=== PATIENT | male | born 2000 | race Hispanic/Latino ===

== ENCOUNTER 2025-06-28 20:59 | Emergency (ER) | payer SELFPAY ==
[2025-06-28] MEDS ORDERED: Ketorolac Tromethamine 30 MG (1 mL) VIAL ONE (22:18)
[2025-06-28] MEDS ORDERED: Acetaminophen 500 MG TAB ONE (22:18)
[2025-06-28 22:48] LABS: Anion Gap 20 mmol/L (10-20); BUN (Urea Nitrogen) 12 mg/dL (8.9-20.6); CK (CPK) 310 U/L (30-200); Calc. Creatinine Clearance 0 mL/min (70-130); Calcium 9.6 mg/dL (7.8-10.44); Carbon Dioxide 21 mmol/L (22-29); Chloride 103 mmol/L (98-107); Glucose 184 mg/dL (70-105); Potassium 3.8 mmol/L (3.5-5.1); Sodium 140 mmol/L (136-145)
== END 2025-06-28 23:17 | disposition home or self-care (01) ==
LOC: BURERS 20:59
DX: M79.604 Pain in right leg (principal); R74.8 Abnormal levels of other serum enzymes; F17.210 Nicotine dependence, cigarettes, uncomplicated; W22.09XA Striking against other stationary object, initial encounter; Y92.69 Other specified industrial and construction area as the place of occurrence of the external cause; Z55.6 Problems related to health literacy
CPT/HCPCS: 36415; 80048; 82550; 96372; 99283; J1885